=== PATIENT | female | born 1945 | race Caucasian/White ===

== ENCOUNTER 2021-05-16 09:29 | Day surgery (SDC) | payer MEDICARE, BC ==
[~2021-05-16] VITALS: Ht 154.9 cm; Wt 68.2 kg
[2021-05-16 09:56] VITALS: BP 137/86
[2021-05-16] MEDS ORDERED: CICL6.6S5 TOP (10:07)
[2021-05-16] MEDS ORDERED: QUET100T33 PO (10:07)
[2021-05-16] MEDS ORDERED: COLC0.6T72 (10:07)
[2021-05-16] MEDS ORDERED: OMEP40CA21 PO (10:07)
[2021-05-16] MEDS ORDERED: LIDOcaine Viscous 15ml cup ONE (10:22)
[2021-05-16] MEDS ORDERED: MIDAZolam 1 MG/ML 5ML VIAL ONE (10:22)
[2021-05-16] MEDS ORDERED: fentaNYL/PF 50MCG/1 ML 2ML syringe ONE (10:22)
[2021-05-16 11:02] VITALS: BP 151/85
[2021-05-16 11:12] VITALS: BP 145/81
[2021-05-16 11:22] VITALS: BP 146/75
[2021-05-16 11:32] VITALS: BP 146/96
== END 2021-05-16 11:40 | disposition home or self-care (01) ==
LOC: GI LAB 09:29
PROVIDERS: ATTEND Internal Medicine Gastroenterology
DX: R13.10 Dysphagia, unspecified (principal); K29.50 Unspecified chronic gastritis without bleeding; K20.80 Other esophagitis without bleeding; K22.2 Esophageal obstruction; K44.9 Diaphragmatic hernia without obstruction or gangrene; F03.90 Unspecified dementia, unspecified severity, without behavioral disturbance, psychotic disturbance, mood disturbance, and anxiety; Z79.899 Other long term (current) drug therapy
CPT/HCPCS: 43239; 43450; 88305; 88342; J2250; J3010; J7040; 43233; 99152; A4620